=== PATIENT | female | born 1975 | race American Indian/Alaskan Native ===

== ENCOUNTER 2017-01-21 10:11 | Outpatient (CLI) | payer BC ==
--- NOTE | 2017-01-21 11:06 | Mammography Report ---
IMPLANT MAMMOGRAM: Bilateral breast imaging was done with standard and displacement technique. The heterogeneously dense parenchyma is symmetrically seen ventral to each submuscular saline implant. The implant contours are smooth. No suspicious findings or secondary signs of malignancy are seen. These findings are unchanged compared to June 2015. CAD was utilized. CONCLUSION: Negative implant mammogram. RECOMMENDATION: Routine follow-up. BI-RADS CATEGORY: 1 = Negative ACR BI-RADS MAMMOGRAPHIC CODES: 0 = Needs additional imaging evaluation; 1 = Negative; 2 = Benign; 3 = Probably benign; 4 = Suspicious; 5 = Malignant; 6 = Known biopsy-proven malignancy COMMENT: 1. Dense breast tissue, i.e., adenosis, fibrocystic changes, etc., may obscure an underlying neoplasm. 2. Approximately 10% of cancers are not detected with mammography. 3. A negative mammography report should not delay biopsy if a clinically suspicious mass is present. COMMENT: Patient follow-up letters are generated in [employer].
== END 2017-01-21 10:12 | disposition home or self-care (01) ==
LOC: MAMMO 10:11
DX: Z12.31 Encounter for screening mammogram for malignant neoplasm of breast (principal)
CPT/HCPCS: 77067; G0202

== ENCOUNTER 2017-01-21 11:08 | Outpatient (CLI) | payer BC ==
--- NOTE | 2017-01-21 12:18 | XRay Report ---
PA and lateral chest: Positive PPD. Routine views demonstrate clear, well-expanded lungs. No nodule or calcification identified in the lungs. No enlarged central lymph nodes. The mediastinal contour is unremarkable. Bilateral saline memory implants present. Impression: Normal exam.
== END 2017-01-21 11:09 | disposition home or self-care (01) ==
LOC: XRAY 11:08
DX: Z11.1 Encounter for screening for respiratory tuberculosis (principal); R76.11 Nonspecific reaction to tuberculin skin test without active tuberculosis
CPT/HCPCS: 71020